=== PATIENT | male | born 1995 | race African-American/Black ===

== ENCOUNTER 2016-05-19 09:35 | Emergency (ER) | payer OTHER ==
[~2016-05-19] VITALS: Ht 182.9 cm; Wt 107.6 kg
[2016-05-19 09:43] VITALS: TEMP 37; Ht 182.9 cm; Wt 107.6 kg
[2016-05-19] MEDS ORDERED: IBUP-103 PO (10:17)
--- NOTE | 2016-05-19 11:26 | DIAGNOSTIC IMAGING REPORT ---
RIGHT KNEE 3 VIEWS CLINICAL HISTORY: Right leg pain. Previous knee injury. COMPARISON: None FINDINGS: Alignment of the right knee is anatomic. There is no acute fracture or joint effusion. Note is made of an 8 mm vague calcific density that projects posterior to the joint space on lateral projection. This is indeterminate. IMPRESSION: 1. No acute fracture or joint effusion of the right knee. 2. Vague 8 mm calcific density which projects posterior to the joint space shown on lateral projection. This finding is indeterminate. Electronically signed by: Flako Slaughter M.D. 05/19/2016 11:24 AM Dictated Date/Time: 05/19/2016 11:23 AM
--- NOTE | 2016-05-19 12:24 | DIAGNOSTIC IMAGING REPORT ---
ULTRASOUND RIGHT LOWER EXTREMITY VENOUS CLINICAL HISTORY: Right leg pain. COMPARISON STUDY: No priors. TECHNIQUE: Real-time, grayscale, and color Doppler sonography of the deep veins of the right lower extremity was performed from the inguinal crease to the calf. Compression and augmentation were utilized. FINDINGS: There is no sonographic evidence of deep venous thrombosis identified in the right lower extremity. The common femoral, superficial femoral, and popliteal veins are patent and normally compressible. The greater saphenous vein and the profunda femoris vein at the junction with the common femoral vein are clear. The visualized calf veins are patent. No abnormality is identified around the knee at the indicated site of discomfort. IMPRESSION: There is no sonographic evidence of deep venous thrombosis identified in the right lower extremity. Electronically signed by: Marcus Lester M.D. 05/19/2016 12:22 PM Dictated Date/Time: 05/19/2016 12:22 PM
[2016-05-19] MEDS ORDERED: OXYC-57 PO (12:38)
--- NOTE | 2016-05-19 12:41 | EMERGENCY ROOM VISIT NOTE ---
History First contact with patient: 10:26 Chief Complaint: LEG PAIN,LEG INJURY Stated Complaint: CONSTANT RIGHT LEG PAIN History of Present Illness The patient is a 21 year old male who presents to the Emergency Room with complaints of right leg pain which began while he was laying in bed last night. He reports that the pain radiates from the right knee up to his groin and down to his ankle. He reports that he had an injury to the right knee 6 years ago. He reports that a few years ago, he did develop a similar shooting pain in his right leg which resolved after a few days of rest. The patient reports the pain as a shooting sensation and rates the discomfort a 6/10. He has not taken anything for pain at home. He denies any redness, warmth or swelling of the leg. He denies any numbness or weakness. He denies any pain in the back. He denies any recent injury to the leg. The patient was seen at [facility] and sent here for further evaluation. Review of Systems A complete 10-point Review of Systems was discussed with the patient, with pertinent positives and negatives listed in the History of Present Illness. All remaining Review of Systems questions can be considered negative unless otherwise specified. Social History Smoking Status: Never Smoker Current/Historical Medications Scheduled PRN Ibuprofen Tab (Advil), 200-600 MG PO Q4H PRN for Pain Oxycodone/Acetaminophen 5MG/325MG (Percocet 5MG/325MG), 1-2 TABS PO Q4H PRN for Pain Allergies Coded Allergies: No Known Allergies (Unverified , 05/19/16) Physical Exam Vital Signs Date Time Temp Pulse Resp B/P Pulse Ox O2 Delivery O2 Flow Rate FiO2 05/19/16 13:35 75 16 150/72 98 Room Air 05/19/16 11:26 52 16 146/69 98 Room Air 05/19/16 09:43 37.0 61 18 142/65 98 Room Air Physical Exam VITALS: Vitals are noted on the nurse's note and reviewed by myself. Vital signs stable. GENERAL: This is a 21-year-old male, in no acute distress, nondiaphoretic, well- developed well-nourished. SKIN: Capillary reflex less than 2 seconds. No erythema, warmth or edema. HEART: Regular rate and rhythm without murmurs gallops or rubs. LUNGS: Clear to auscultation bilaterally without wheezes, rales or rhonchi. No retractions or accessory muscle use. MUSCULOSKELETAL: Mild tenderness to palpation of the right knee and superior to the right knee. Full range of motion of the right leg. Strength 5/5. NEURO: Patient was alert and oriented to person place and time. Normal sensation to light and sharp touch. Deep tendon reflexes 2+ throughout. No focal neurological deficits. Medical Decision & Procedures ER Provider Diagnostic Interpretation: RIGHT KNEE 3 VIEWS FINDINGS: Alignment of the right knee is anatomic. There is no acute fracture or joint effusion. Note is made of an 8 mm vague calcific density that projects posterior to the joint space on lateral projection. This is indeterminate. IMPRESSION: 1. No acute fracture or joint effusion of the right knee. 2. Vague 8 mm calcific density which projects posterior to the joint space shown on lateral projection. This finding is indeterminate. ULTRASOUND RIGHT LOWER EXTREMITY VENOUS FINDINGS: There is no sonographic evidence of deep venous thrombosis identified in the right lower extremity. The common femoral, superficial femoral, and popliteal veins are patent and normally compressible. The greater saphenous vein and the profunda femoris vein at the junction with the common femoral vein are clear. The visualized calf veins are patent. No abnormality is identified around the knee at the indicated site of discomfort. IMPRESSION: There is no sonographic evidence of deep venous thrombosis identified in the right lower extremity. Medications Administered Medications (Trade) Dose Ordered Sig/Tariq Route Start Time Stop Time Status Last Admin Dose Admin Acetaminophen/ Hydrocodone Bitart ([place] 5/325 Tab) 1 tab STK-MED ONCE .ROUTE 05/19/16 13:31 05/19/16 13:33 DC 05/19/16 13:36 1 TAB Medical Decision Differential diagnosis includes musculoskeletal pain, DVT, cellulitis, among others. The patient was evaluated as above. Labs were drawn and IV access was obtained. Imaging studies were performed and read by radiology as above. The patient is a 21-year-old male who presents today complaining of right leg pain. The patient was apparently sent here by Where due to a fever. The patient is afebrile here and temperature at [employer] was 99.4F. There are no findings to suggest an infectious cause of the patient's pain. Ultrasound of the right lower extremities was performed and read by radiology with no acute findings. X-ray of the right knee was obtained and showed no fracture or dislocation. The patient has had a prior injury to the right knee. His pain does seem to be stemming from the right knee. He'll be treated with a short course of pain medication and rest. He states that when he has had this pain in the past, this is what has worked for him. He will follow-up with [facility] and will return for any worsening symptoms. Based on the patient's presentation, lab results, and imaging studies, I feel the patient is stable for outpatient treatment. Discharge instructions were reviewed with the patient. The patient verbalized understanding of my assessment and treatment plan and was discharged home in good condition. Impression Primary Impression: Leg pain, right Departure Information Dispostion Home / Self-Care Condition GOOD Prescriptions Oxycodone/Acetaminophen 5MG/325MG (PERCOCET 5MG/325MG) Tab 1-2 TABS PO Q4H Y for Pain, #15 TAB For Initial Treatment Prov: Trisha Rachel .ALEXYS 05/19/16 Referrals No Doctor, Assigned (PCP) Patient Instructions My [facility] Additional Instructions You have been prescribed [place] to be used for pain control. Take 1-2 tablets every 4-6 hours as needed for pain. This is a narcotic medication. You cannot drive or consume alcohol while on this medicine. This medicine should only be used for pain that cannot be controlled with [id number] pain medicines. For pain control, you can use the following [id number] medicines (if >12 yo): - Regular strength (325mg/tab) Tylenol (acetaminophen) 2 tabs every 4-6 hours as needed. Do not exceed 12 tablets in a 24 hour period. Avoid taking more than 4 grams (4000 mg) of Tylenol per day. This includes any other sources of acetaminophen you may take on a regular basis. - Regular strength (200 mg/tab) Advil (ibuprofen) 1-2 tabs every 4-6 hours as needed. Do not exceed a dose of 3200 mg per day. Follow-up with [facility] this week. Return to the emergency department with worsening pain, fevers, numbness, weakness or any other new/concerning symptoms.
[2016-05-19] MEDS ORDERED: NURSING VERBAL MED ORDER ONE (13:30)
[2016-05-19] MEDS ORDERED: HYDROCODONE/ACETAMOPHEN 5/325MG TAB ONE (13:31)
[2016-05-19 13:35] VITALS: BP 150/72; PULSE 75; O2SAT 98
== END 2016-05-19 13:37 | disposition home or self-care (01) ==
LOC: C.EDB 09:39 → C.EDA 13:37
DX: M79.604 Pain in right leg (principal); Z87.828 Personal history of other (healed) physical injury and trauma